=== PATIENT | male | born 1945 | race Caucasian/White ===

== ENCOUNTER 2018-07-05 21:13 | Emergency (ER) | payer OTHER ==
[~2018-07-05] VITALS: Ht 177.8 cm; Wt 90.7 kg
[~2018-07-05 21:13] MED LIST: ALEN70TA6 PO; ALLO300T2 PO; AMLO5TAB9 PO; ATEN100T PO; IBUP-1957 PO; LISI40TA4 PO; OXCA300T15 PO; QUET300T2 PO; VALP250S3 PO; ZIPR80CA2 PO; [UNRECOGNIZED DRUG - CODE] PO
--- NOTE | 2018-07-05 22:15 | NUR ---
BIBRA. C/O "NUMBNESS ALL OVER. WEAKNESS/NAUSEA" -SOB +N/-V. -NEURO DEFICIT. PT AAOX4, SPEAKING FLUENTLY, NO ARM/LEG DRIFTING, STRONG EQUAL LOOKBACK COORDINATOR, NO FACIAL DROOP. VSS. DENIES CP, SOB, DIZZINESS @ THIS TIME. DR. THAKKAR @ BS FOR EVAL & WILL CONT TO MONITOR.
[2018-07-05] MEDS ORDERED: IV NS 0.9% 500 ML BAG IV ONE (22:30)
[2018-07-05] MEDS ORDERED: ONDANSETRON HCL/PF 4 MG/2 ML VIAL IV ONE (22:30)
--- NOTE | 2018-07-05 22:30 | NUR ---
ADDENDUM: Intravenous End Time Documentation: Normal saline 500 cc (IV-WO): start time: 2230 PM ; end time: 2300 PM : IV site:[facility] PIV # 20 Port # 1
[2018-07-05 22:33] LABS: BASOPHILS % (AUTO) 0.4 % (0.0-2.0); EOSINOPHILS % (AUTO) 0.5 % (0.0-6.0); HEMATOCRIT 39 % (39-51); HEMOGLOBIN 13.1 g/dL (13.5-17.5); LYMPHOCYTES # (AUTO) 2.1 /CMM (0.8-4.8); LYMPHOCYTES % (AUTO) 26.6 % (20.0-44.0); MEAN CORPUSCULAR HGB CONC 33 g/dl (31.0-36.0); MEAN CORPUSCULAR VOLUME 82 fL (80-96); MONOCYTES # (AUTO) 0.7 /CMM (0.1-1.30); MONOCYTES % (AUTO) 8.9 % (2.0-12.0); NEUTROPHILS % (AUTO) 63.6 % (43.0-81.0); PLATELET COUNT (AUTO) 160 /CMM (150-450); RED BLOOD CELL COUNT(AUTO) 4.78 MIL/uL (4.5-6.0); WHITE BLOOD COUNT (AUTO) 7.9 K/uL (4.3-11.0)
[2018-07-05] MEDS ORDERED: ONDANSETRON HCL/PF 4 MG/2 ML VIAL ONE (22:39)
[2018-07-05 22:44] LABS: CARBON DIOXIDE 27 mmol/L (21-32); CHLORIDE 109 mmol/L (98-107); GLUCOSE 149 mg/dL (74-106); POTASSIUM 3.5 mmol/L (3.5-5.1); SODIUM SERUM 146 mmol/L (136-145); UREA NITROGEN, BLOOD 27 mg/dL (7-18)
--- NOTE | 2018-07-05 22:45 | NUR ---
MEDICATED FOR N/V, PT ELENA WELL.
[2018-07-05 22:49] LABS: ALANINE AMINOTRANSFERASE 24 U/L (12-78); ALBUMIN 3.4 g/dL (3.4-5.0); ALKALINE PHOSPHATASE 77 U/L (46-116); ASPARTATE AMINOTRANSFERASE 17 U/L (15-37); BILIRUBIN,DIRECT 0.1 mg/dL (0.0-0.2); BILIRUBIN,TOTAL 0.3 mg/dL (0.2-1.0); TOTAL PROTEIN, SERUM 6.8 g/dL (6.4-8.2)
[2018-07-05] MEDS ORDERED: IV NS 0.9% 1,000 ML BAG IV ONE (23:30)
--- NOTE | 2018-07-05 23:49 | NUR ---
SPOKE WITH SUELLEN FROM [facility], WILL CALL BACK FOR MD CONTACT
[2018-07-06] MEDS ORDERED: METOCLOPRAMIDE HCL 10 MG/2 ML VIAL IV ONE
[2018-07-06] MEDS ORDERED: METOCLOPRAMIDE HCL 10 MG/2 ML VIAL ONE (00:02)
--- NOTE | 2018-07-06 00:20 | NUR ---
PT TO BE TRANSFERRED TO [facility] ADMITTING MD: DR. PARKS NUMBER FOR REPORT: [facility] ETA [phone]
[2018-07-06 01:15] VITALS: BP 104/63
--- NOTE | 2018-07-06 01:15 | NUR ---
Report given to Fabian at [facility] for NADYA.
== END 2018-07-06 01:36 | disposition short-term general hospital (02) ==
LOC: ER 21:17
DX: E86.0 Dehydration (principal); R53.1 Weakness; R11.2 Nausea with vomiting, unspecified; I10 Essential (primary) hypertension; F31.9 Bipolar disorder, unspecified
CPT/HCPCS: 36415; 70450; 71045; 80048; 80076; 84484; 85025; 85730; 93005; 96361; 96374; 96375; 99285; J2405; J2765; J7030; J7040

== ENCOUNTER 2018-07-11 23:05 | Emergency (ER) | payer OTHER, MEDICAID ==
[~2018-07-11] VITALS: Ht 175.3 cm; Wt 93.0 kg
[2018-07-11 23:18] VITALS: BP 110/91
--- NOTE | 2018-07-11 23:24 | NUR ---
AFTER BEING TRIAGED, PT STATES "SINCE MY BLOOD PRESSURE IS NORMAL, I'LL JUST FOLLOW UP WITH MY PCP" RISK AND BENEFITS EXPLAINED X3. PT STRONGLY WANT TO GO HOME AND FOLLOW UP WITH PCP.
== END 2018-07-11 23:26 | disposition left against medical advice (07) ==
LOC: ER 23:06
DX: Z53.21 Procedure and treatment not carried out due to patient leaving prior to being seen by health care provider (principal); I10 Essential (primary) hypertension

== ENCOUNTER 2019-12-22 10:21 | Emergency (ER) | payer OTHER, MEDICAID ==
[~2019-12-22] VITALS: Ht 175.3 cm; Wt 90.7 kg
[2019-12-22] MEDS ORDERED: IV NS 0.9% 500 ML BAG IV ONE (11:00)
--- NOTE | 2019-12-22 11:07 | NUR ---
BROTHER: DEXTER WEBB [phone]
--- NOTE | 2019-12-22 11:14 | NUR ---
IV BOLUS GIVEN PER MD ORDER
--- NOTE | 2019-12-22 11:14 | NUR ---
PT IV STARTED RT AC 20G LABS DRAWN SENT TO LAB VSS
[2019-12-22 11:17] LABS: BASOPHILS % (AUTO) 0.4 % (0.0-2.0); EOSINOPHILS % (AUTO) 0.7 % (0.0-6.0); HEMATOCRIT 38 % (39-51); HEMOGLOBIN 12.2 g/dL (13.5-17.5); LYMPHOCYTES # (AUTO) 1.3 /CMM (0.8-4.8); LYMPHOCYTES % (AUTO) 17.9 % (20.0-44.0); MEAN CORPUSCULAR HGB CONC 32 g/dl (31.0-36.0); MEAN CORPUSCULAR VOLUME 81 fL (80-96); MONOCYTES # (AUTO) 0.8 /CMM (0.1-1.30); MONOCYTES % (AUTO) 11.5 % (2.0-12.0); NEUTROPHILS % (AUTO) 69.5 % (43.0-81.0); PLATELET COUNT (AUTO) 114 /CMM (150-450); RED BLOOD CELL COUNT(AUTO) 4.68 MIL/uL (4.5-6.0); WHITE BLOOD COUNT (AUTO) 7.2 K/uL (4.3-11.0)
[2019-12-22 11:37] LABS: CALCIUM, SERUM 8.8 mg/dL (8.5-10.1); CARBON DIOXIDE 29 mmol/L (21-32); CHLORIDE 105 mmol/L (98-107); CREATININE 1.8 mg/dL (0.6-1.3); GLUCOSE 109 mg/dL (74-106); POTASSIUM 3.8 mmol/L (3.5-5.1); SODIUM SERUM 142 mmol/L (136-145); UREA NITROGEN, BLOOD 35 mg/dL (7-18)
[2019-12-22 11:44] LABS: ALANINE AMINOTRANSFERASE 22 U/L (12-78); ALBUMIN 2.8 g/dL (3.4-5.0); ALKALINE PHOSPHATASE 47 U/L (46-116); ASPARTATE AMINOTRANSFERASE 22 U/L (15-37); BILIRUBIN,DIRECT 0.1 mg/dL (0.0-0.2); BILIRUBIN,TOTAL 0.3 mg/dL (0.2-1.0); TOTAL PROTEIN, SERUM 6.7 g/dL (6.4-8.2)
--- NOTE | 2019-12-22 12:12 | NUR ---
URINE SPECIMEN COLLECTED AND SENT TO LAB.
--- NOTE | 2019-12-22 12:17 | NUR ---
UA SENT TO LAB
[2019-12-22 12:38] LABS: APPEARANCE,URINE CLEAR (CLEAR); BILIRUBIN,URINE NEGATIVE (NEGATIVE); BLOOD, URINE MODERATE Ery/uL (NEGATIVE); COLOR,URINE YELLOW (YELLOW); KETONES,URINE NEGATIVE (NEGATIVE); LEUKOCYTE ESTERASE ,URINE NEGATIVE (NEGATIVE); NITRITE, URINE NEGATIVE (NEGATIVE); PROTEIN,URINE NEGATIVE (NEGATIVE); UGLUCOSE NEGATIVE (NEGATIVE); UROBILINOGEN,URINE 0.2 EU/dL (0.2)
--- NOTE | 2019-12-22 12:41 | NUR ---
CALLED [facility], AWAITING CALL FROM [facility] DR CUEVAS)
[2019-12-22 12:57] LABS: BACTERIA,URINE None seen /HPF (None Seen); RBC,URINE 21-50 /HPF (0-2); SQUAMOUS EPITHELIAL CELL,UR Few /HPF (None Seen); WBC,URINE NONE SEEN /HPF (0-3)
[2019-12-22 13:07] VITALS: BP 138/87
--- NOTE | 2019-12-22 13:20 | NUR ---
SPOKED TO ROBBIE JOHNSON AWNING HANGER SUPERVISOR. PT WILL GO TO [place] WILL CALL BACK FOR TRANSFER INFO.
--- NOTE | 2019-12-22 13:45 | NUR ---
TRANSFER INFO: [facility] ACCEPTING DR. NICKOLAS [facility] SOCIAL WORK CASE MANAGER TIME 1430 GO TO ER.. # FOR REPORT [phone]
--- NOTE | 2019-12-22 14:09 | NUR ---
REPORT GIVEN TO LAUREN TOBAR ER AT [facility]. PT STABLE FOR TRANSFER
== END 2019-12-22 14:14 | disposition short-term general hospital (02) ==
LOC: ER 10:25
DX: N17.9 Acute kidney failure, unspecified (principal); R53.1 Weakness; R29.6 Repeated falls; R42 Dizziness and giddiness; G40.909 Epilepsy, unspecified, not intractable, without status epilepticus; I10 Essential (primary) hypertension; Z60.2 Problems related to living alone; Z79.899 Other long term (current) drug therapy
CPT/HCPCS: 36415; 70450; 70486; 71045; 80048; 80076; 80164; 81001; 83880; 84484; 85025; 87086; 93005; 96360; 99285; J7030; 81000-TC

== ENCOUNTER 2020-01-23 06:06 | Emergency (ER) | payer OTHER ==
[~2020-01-23] VITALS: Ht 172.7 cm; Wt 90.7 kg
--- NOTE | 2020-01-23 06:28 | NUR ---
URINE COLLECTED AND SENT TO THE LAB.
--- NOTE | 2020-01-23 06:28 | NUR ---
PATIENT CAME TO ER BED 9 C/O "BLADDER INFECTION". PT STATES, "I HAVE BEEN PEEING FOR 15 TIMES SINCE YESTERDAY DAY, AND THEN I NOTICED SOME BLOOD". PATIENT IS COMPLAINING ABOUT LEFT KNEE PAIN FROM HIS ARTHRITIS. PATIENT IS AMBULATORY WITH A STEADY GAIT. PATIENT IS AAOX4. NO SOB. BREATHING EVENLY AND UNLABORED ON ROOM AIR. CONNECTED TO THE MONITOR.
--- NOTE | 2020-01-23 06:33 | NUR ---
NURSING CENTER TUTOR AT BEDSIDE FOR BLOOD DRAW
[2020-01-23 07:00] LABS: BASOPHILS % (AUTO) 0.3 % (0.0-2.0); EOSINOPHILS % (AUTO) 1.2 % (0.0-6.0); HEMATOCRIT 33 % (39-51); HEMOGLOBIN 10.7 g/dL (13.5-17.5); LYMPHOCYTES # (AUTO) 1.3 /CMM (0.8-4.8); MEAN CORPUSCULAR HGB CONC 32 g/dl (31.0-36.0); MEAN CORPUSCULAR VOLUME 79 fL (80-96); MONOCYTES # (AUTO) 0.9 /CMM (0.1-1.30); MONOCYTES % (AUTO) 13.7 % (2.0-12.0); NEUTROPHILS # (AUTO) 4.1 /CMM (1.8-8.9); NEUTROPHILS % (AUTO) 64.8 % (43.0-81.0); PLATELET COUNT (AUTO) 161 /CMM (150-450); WHITE BLOOD COUNT (AUTO) 6.3 K/uL (4.3-11.0)
[2020-01-23 07:06] LABS: APPEARANCE,URINE SL CLOUDY (CLEAR); BILIRUBIN,URINE NEGATIVE (NEGATIVE); BLOOD, URINE LARGE Ery/uL (NEGATIVE); COLOR,URINE AMBER (YELLOW); KETONES,URINE NEGATIVE (NEGATIVE); LEUKOCYTE ESTERASE ,URINE NEGATIVE (NEGATIVE); NITRITE, URINE NEGATIVE (NEGATIVE); PROTEIN,URINE >=300 mg/dl (NEGATIVE); UGLUCOSE NEGATIVE (NEGATIVE)
[2020-01-23 07:15] LABS: ALANINE AMINOTRANSFERASE 19 U/L (12-78); ALBUMIN 2.7 g/dL (3.4-5.0); ALKALINE PHOSPHATASE 55 U/L (46-116); ASPARTATE AMINOTRANSFERASE 15 U/L (15-37); BILIRUBIN,DIRECT 0.1 mg/dL (0.0-0.2); BILIRUBIN,TOTAL 0.2 mg/dL (0.2-1.0); CALCIUM, SERUM 9.3 mg/dL (8.5-10.1); CARBON DIOXIDE 22 mmol/L (21-32); CHLORIDE 104 mmol/L (98-107); CREATININE 1.5 mg/dL (0.6-1.3); GLUCOSE 120 mg/dL (74-106); LIPASE 218 U/L (73-393); POTASSIUM 3.6 mmol/L (3.5-5.1); SODIUM SERUM 139 mmol/L (136-145); UREA NITROGEN, BLOOD 25 mg/dL (7-18)
--- NOTE | 2020-01-23 07:18 | NUR ---
REPORT GIVEN TO RONEY TOBAR FOR NADYA.
[2020-01-23 07:22] LABS: RBC,URINE TOO NUMEROUS TO COUN /HPF (0-2)
[2020-01-23 07:23] LABS: BACTERIA,URINE None seen /HPF (None Seen); SQUAMOUS EPITHELIAL CELL,UR Few /HPF (None Seen)
[2020-01-23 07:46] VITALS: BP 129/70
--- NOTE | 2020-01-23 07:46 | NUR ---
Patient discharged to home in stable condition. Written and verbal after care instructions given. Patient verbalizes understanding of instruction.
== END 2020-01-23 07:46 | disposition home or self-care (01) ==
LOC: ER 06:09
DX: N30.01 Acute cystitis with hematuria (principal); D64.9 Anemia, unspecified; I10 Essential (primary) hypertension; F31.9 Bipolar disorder, unspecified; Z60.2 Problems related to living alone; Z79.899 Other long term (current) drug therapy
CPT/HCPCS: 36415; 80048-TC; 80076-TC; 81000-TC; 83605-TC; 83690-TC; 85025-TC; 85730-TC; 87040-TC; 87086-TC; 87186-TC

== ENCOUNTER 2020-01-26 06:46 | Emergency (ER) | payer OTHER, MEDICAID ==
[~2020-01-26] VITALS: Ht 172.7 cm; Wt 90.7 kg
--- NOTE | 2020-01-26 06:58 | NUR ---
PT CAME TO THE ER C/O WORSENING HEMATURIA, DYSURIA, AND URINARY FREQUENCY X 4 DAYS. PT IS ON KEFLEX. PT AAOX4, VSS, RESPIRATIONS EVEN AND UNLABORED ON RA W/ NAD NOTED. PT CONNECTED TO THE MONITOR AND POX
--- NOTE | 2020-01-26 07:04 | NUR ---
URINE COLLECTED AND SENT TO LAB
--- NOTE | 2020-01-26 07:22 | NUR ---
BLOOD COLLECTED AND SENT TO LAB
[2020-01-26] MEDS ORDERED: IV NS 0.9% 1,000 ML BAG IV ONE (07:30)
[2020-01-26 07:41] LABS: CALCIUM, SERUM 9.1 mg/dL (8.5-10.1); CARBON DIOXIDE 25 mmol/L (21-32); CHLORIDE 102 mmol/L (98-107); CREATININE 1.5 mg/dL (0.6-1.3); GLUCOSE 118 mg/dL (74-106); POTASSIUM 3.3 mmol/L (3.5-5.1); SODIUM SERUM 139 mmol/L (136-145); UREA NITROGEN, BLOOD 20 mg/dL (7-18)
[2020-01-26 07:46] LABS: ALANINE AMINOTRANSFERASE 17 U/L (12-78); ALBUMIN 2.7 g/dL (3.4-5.0); ALKALINE PHOSPHATASE 52 U/L (46-116); ASPARTATE AMINOTRANSFERASE 13 U/L (15-37); BILIRUBIN,DIRECT 0.1 mg/dL (0.0-0.2); BILIRUBIN,TOTAL 0.2 mg/dL (0.2-1.0); TOTAL PROTEIN, SERUM 6.9 g/dL (6.4-8.2)
[2020-01-26 07:54] LABS: APPEARANCE,URINE CLOUDY (CLEAR); BILIRUBIN,URINE SMALL (NEGATIVE); BLOOD, URINE LARGE Ery/uL (NEGATIVE); COLOR,URINE DARK YELLO (YELLOW); KETONES,URINE TRACE (NEGATIVE); LEUKOCYTE ESTERASE ,URINE NEGATIVE (NEGATIVE); NITRITE, URINE NEGATIVE (NEGATIVE); PROTEIN,URINE >=300 mg/dl (NEGATIVE); UGLUCOSE NEGATIVE (NEGATIVE)
[2020-01-26] MEDS ORDERED: VANCOMYCIN 1 GM in IV D5W 250 ML IV ONE (08:00)
[2020-01-26 08:09] LABS: BASOPHILS % (AUTO) 0.5 % (0.0-2.0); EOSINOPHILS % (AUTO) 2.8 % (0.0-6.0); HEMATOCRIT 34 % (39-51); HEMOGLOBIN 10.9 g/dL (13.5-17.5); LYMPHOCYTES # (AUTO) 1.4 /CMM (0.8-4.8); LYMPHOCYTES % (AUTO) 21.1 % (20.0-44.0); MEAN CORPUSCULAR HGB CONC 32 g/dl (31.0-36.0); MEAN CORPUSCULAR VOLUME 79 fL (80-96); MONOCYTES # (AUTO) 0.9 /CMM (0.1-1.30); MONOCYTES % (AUTO) 14.3 % (2.0-12.0); NEUTROPHILS % (AUTO) 61.3 % (43.0-81.0); PLATELET COUNT (AUTO) 186 /CMM (150-450); RED BLOOD CELL COUNT(AUTO) 4.32 MIL/uL (4.5-6.0); WHITE BLOOD COUNT (AUTO) 6.6 K/uL (4.3-11.0)
[2020-01-26] MEDS ORDERED: VANCOMYCIN 1 GM VIAL ONE (08:19)
[2020-01-26 08:35] LABS: BACTERIA,URINE Rare /HPF (None Seen); RBC,URINE TOO NUMEROUS TO COUN /HPF (0-2); SQUAMOUS EPITHELIAL CELL,UR Few /HPF (None Seen); WBC,URINE 0-2 /HPF (0-3)
--- NOTE | 2020-01-26 09:35 | NUR ---
IV removed. Catheter intact and site benign. Pressure and 4x4 applied to site. No bleeding noted.Patient discharged to home in stable condition. Written and verbal after care instructions given. Patient verbalizes understanding of instruction.
[2020-01-26 09:36] VITALS: BP 117/69
== END 2020-01-26 09:36 | disposition home or self-care (01) ==
LOC: ER 06:53
DX: N30.00 Acute cystitis without hematuria (principal); R94.4 Abnormal results of kidney function studies; I10 Essential (primary) hypertension; F31.9 Bipolar disorder, unspecified; Z60.2 Problems related to living alone; Z79.899 Other long term (current) drug therapy
CPT/HCPCS: 36415; 74176; 80048; 80076; 81001; 83605; 84484; 85025; 85610; 85730; 87086; 96361; 96365; 99284; J3370; 81000-TC

== ENCOUNTER 2020-09-02 05:13 | Emergency (ER) | payer OTHER ==
[~2020-09-02] VITALS: Ht 172.7 cm; Wt 90.7 kg
[~2020-09-02 05:13] MED LIST changes: -ALEN70TA6 PO; +ALEN70TA80 PO; +AMLO-212 PO; -AMLO5TAB9 PO; +LISI40TA13 PO; -LISI40TA4 PO
--- NOTE | 2020-09-02 05:28 | NUR ---
BIBS FOR C/O GENERALIZED ABD PAIN X 2 DAYS. -N/V/D, - DYSURIA OR HEMATURIA. PT WAS ASSISTED TO BED 4 ER WAS PLACED ON A MONITOR . VSS.
[2020-09-02] MEDS ORDERED: MORPHINE SULFATE INJ 2 MG/ML DISP.SYRIN IV ONE ×2 (06:00→10:00)
[2020-09-02] MEDS ORDERED: ONDANSETRON HCL/PF 4 MG/2 ML VIAL IVP ONE (06:00)
[2020-09-02] MEDS ORDERED: IV NS 0.9% 500 ML BAG IV ONE (06:00)
[2020-09-02] MEDS ORDERED: ONDANSETRON HCL/PF 4 MG/2 ML VIAL ONE (06:18)
[2020-09-02 06:19] LABS: BASOPHILS # (AUTO) 0.1 /CMM (0.0-0.2); BASOPHILS % (AUTO) 0.9 % (0.0-2.0); HEMATOCRIT 36 % (39-51); HEMOGLOBIN 11.3 g/dL (13.5-17.5); LYMPHOCYTES # (AUTO) 0.9 /CMM (0.8-4.8); LYMPHOCYTES % (AUTO) 9.7 % (20.0-44.0); MEAN CORPUSCULAR HGB CONC 32 g/dl (31.0-36.0); MEAN CORPUSCULAR VOLUME 77 fL (80-96); MONOCYTES # (AUTO) 0.8 /CMM (0.1-1.30); MONOCYTES % (AUTO) 8.3 % (2.0-12.0); NEUTROPHILS # (AUTO) 7.4 /CMM (1.8-8.9); NEUTROPHILS % (AUTO) 80.1 % (43.0-81.0); PLATELET COUNT (AUTO) 175 /CMM (150-450); RED BLOOD CELL COUNT(AUTO) 4.62 MIL/uL (4.5-6.0); WHITE BLOOD COUNT (AUTO) 9.2 K/uL (4.3-11.0)
--- NOTE | 2020-09-02 06:22 | NUR ---
PATIENT TO CT VIA [facility]
[2020-09-02 06:27] LABS: CARBON DIOXIDE 28 mmol/L (21-32); CHLORIDE 106 mmol/L (98-107); GLUCOSE 168 mg/dL (74-106); POTASSIUM 3.7 mmol/L (3.5-5.1); SODIUM SERUM 140 mmol/L (136-145); UREA NITROGEN, BLOOD 32 mg/dL (7-18)
[2020-09-02 06:35] LABS: ALANINE AMINOTRANSFERASE 10 U/L (12-78); ALBUMIN 3.1 g/dL (3.4-5.0); ALKALINE PHOSPHATASE 55 U/L (46-116); ASPARTATE AMINOTRANSFERASE 10 U/L (15-37); BILIRUBIN,DIRECT 0.1 mg/dL (0.0-0.2); BILIRUBIN,TOTAL 0.3 mg/dL (0.2-1.0); TOTAL PROTEIN, SERUM 7.1 g/dL (6.4-8.2)
--- NOTE | 2020-09-02 06:38 | NUR ---
RETURNED FROM CT
[2020-09-02 06:58] LABS: LIPASE 5403 U/L (73-393)
--- NOTE | 2020-09-02 07:25 | NUR ---
REQUESTED A URINE SAMPLE FROM PATIENT. PATIENT PROVIDED A URINAL.
--- NOTE | 2020-09-02 07:51 | NUR ---
URINE SENT TO LAB.
--- NOTE | 2020-09-02 07:53 | NUR ---
[facility] NOTIFIED. WAITING FOR CALL BACK.
--- NOTE | 2020-09-02 08:10 | NUR ---
COVID SWAB SENT
[2020-09-02 08:19] LABS: BILIRUBIN,URINE Negative (NEGATIVE); COLOR,URINE YELLOW (YELLOW); LEUKOCYTE ESTERASE ,URINE Negative (NEGATIVE); NITRITE, URINE Negative (NEGATIVE); PROTEIN,URINE Negative (NEGATIVE); UGLUCOSE Negative (NEGATIVE); UROBILINOGEN,URINE 0.2 EU/dL (0.2)
[2020-09-02 08:27] LABS: RBC,URINE 0-2 /HPF (0-2)
[2020-09-02 08:28] LABS: BACTERIA,URINE Few /HPF (None Seen); SQUAMOUS EPITHELIAL CELL,UR Rare /HPF (None Seen)
--- NOTE | 2020-09-02 08:50 | NUR ---
covid negative per lab
--- NOTE | 2020-09-02 08:55 | NUR ---
Patient Tranfers to outside Facility Physician:Dr. Hurley Location:[facility] ETA 9:45am [facility]
--- NOTE | 2020-09-02 09:16 | NUR ---
PHONE # FOR REPORT TO MAGALLON
--- NOTE | 2020-09-02 09:17 | NUR ---
SPOKE TO SORIN NO NEED TO GIVE REPORT, REPORT RECEIVED FROM A DOCTOR.
[2020-09-02] MEDS ORDERED: MORPHINE SULFATE INJ 4 MG/ML DISP.SYRIN ONE (09:32)
--- NOTE | 2020-09-02 09:39 | NUR ---
PATIENT AWARE HE'S GOING TO [place] [facility]. KEPT NPO AT THIS TIME. PAIN MEDICATION GIVEN.
--- NOTE | 2020-09-02 09:52 | NUR ---
patient placed on 2lpm via nc for comfort.
[2020-09-02 09:53] VITALS: BP 128/81
--- NOTE | 2020-09-02 10:01 | NUR ---
REPORT AND PAPERWORK GIVEN TO COOK SHORT ORDER. PATIENT A/OX4, IN STABLE CONDITION. O2 IN PLACED. DENIES PAIN AT THIS TIME. PATEINT TRANSFERRED TO [facility].
== END 2020-09-02 10:06 | disposition short-term general hospital (02) ==
LOC: ER 05:16
DX: K85.90 Acute pancreatitis without necrosis or infection, unspecified (principal); R91.8 Other nonspecific abnormal finding of lung field; Z20.822 Contact with and (suspected) exposure to COVID-19; I71.4 Abdominal aortic aneurysm, without rupture; Z90.49 Acquired absence of other specified parts of digestive tract; D64.9 Anemia, unspecified; N28.9 Disorder of kidney and ureter, unspecified; I11.9 Hypertensive heart disease without heart failure; Z79.899 Other long term (current) drug therapy; K59.00 Constipation, unspecified; R26.9 Unspecified abnormalities of gait and mobility
CPT/HCPCS: 36415; 70450; 71045; 74176; 80048; 80076; 81001; 83690; 84484; 85025; 85730; 87086; 87426; 93005; 96374; 96375; 99285; C9803; J2270; J2405; J7030

== ENCOUNTER 2020-09-15 04:48 | Emergency (ER) | payer OTHER ==
[~2020-09-15] VITALS: Ht 172.7 cm; Wt 86.2 kg
--- NOTE | 2020-09-15 04:59 | NUR ---
PRESENTED TO THE ER FOR C/O GNERALIZED WEAKNESS ABOUT 50MIN. PT REPORTED HE'S FEELING VERY WEAK TO WALK. DENIED ANY PAIN OR DISCOMFORT . DENIED H/A OR DIZZINESS. NO NEURO DEFICIT INCLUDING FACIAL DROOP OR SLURRED SPEECH NOTED .PT WAS ASSISTED TO BED 3 ER, WAS PLACED ON A MONITOR . VSS . WILL CONT TO MONITOR,
--- NOTE | 2020-09-15 05:10 | NUR ---
rt hand 20g initiated. blood obtained and sent to lab
--- NOTE | 2020-09-15 05:18 | NUR ---
xray at bedside
[2020-09-15 05:27] LABS: BASOPHILS % (AUTO) 0.5 % (0.0-2.0); EOSINOPHILS % (AUTO) 2.7 % (0.0-6.0); HEMATOCRIT 32 % (39-51); HEMOGLOBIN 10.1 g/dL (13.5-17.5); LYMPHOCYTES # (AUTO) 1.7 /CMM (0.8-4.8); LYMPHOCYTES % (AUTO) 26.3 % (20.0-44.0); MEAN CORPUSCULAR HGB CONC 32 g/dl (31.0-36.0); MEAN CORPUSCULAR VOLUME 77 fL (80-96); MONOCYTES # (AUTO) 0.4 /CMM (0.1-1.30); MONOCYTES % (AUTO) 6.9 % (2.0-12.0); NEUTROPHILS # (AUTO) 4.1 /CMM (1.8-8.9); NEUTROPHILS % (AUTO) 63.6 % (43.0-81.0); PLATELET COUNT (AUTO) 275 /CMM (150-450); RED BLOOD CELL COUNT(AUTO) 4.16 MIL/uL (4.5-6.0); WHITE BLOOD COUNT (AUTO) 6.4 K/uL (4.3-11.0)
--- NOTE | 2020-09-15 06:02 | NUR ---
PT UNABLE TO PROVIDE URINE SAMPLE AT THIS TIME, AWARE
[2020-09-15 06:06] LABS: CALCIUM, SERUM 8.6 mg/dL (8.5-10.1); CARBON DIOXIDE 23 mmol/L (21-32); CHLORIDE 111 mmol/L (98-107); CREATININE 1.7 mg/dL (0.6-1.3); GLUCOSE 114 mg/dL (74-106); POTASSIUM 3.9 mmol/L (3.5-5.1); SODIUM SERUM 145 mmol/L (136-145); UREA NITROGEN, BLOOD 32 mg/dL (7-18)
--- NOTE | 2020-09-15 06:36 | NUR ---
DR CONNOR AT BED SIDE
--- NOTE | 2020-09-15 06:44 | NUR ---
pt able to stand and walk alone without assistance
--- NOTE | 2020-09-15 06:55 | NUR ---
Patient discharged to home in stable condition. Written and verbal after care instructions given. Patient verbalizes understanding of instruction. IV removed. Catheter intact and site benign. Pressure and 4x4 applied to site. No bleeding noted. Pt ambulatory with a steady gait
--- NOTE | 2020-09-15 06:55 | NUR ---
Alexys condon in ED - 09/15/20 at 0706 by CRYSTAL Patient discharged to home in stable condition. Written and verbal after care instructions given. Patient verbalizes understanding of instruction. Pt ambulatory with a steady gait
--- NOTE | 2020-09-15 06:56 | NUR ---
CALLED [facility] FOR TRANSPORTATION
--- NOTE | 2020-09-15 07:16 | NUR ---
Janee from [facility] called for ambulance ETA 830am.
[2020-09-15 07:47] LABS: BILIRUBIN,URINE Negative (NEGATIVE); COLOR,URINE YELLOW (YELLOW); LEUKOCYTE ESTERASE ,URINE Negative (NEGATIVE); NITRITE, URINE Negative (NEGATIVE); PH,URINE 5.5 (5.0-8.0); PROTEIN,URINE Negative (NEGATIVE); UGLUCOSE Negative (NEGATIVE); UROBILINOGEN,URINE 0.2 EU/dL (0.2)
[2020-09-15 08:10] VITALS: BP 141/84
--- NOTE | 2020-09-15 08:11 | NUR ---
Patient discharged to home in stable condition. Written and verbal after care instructions given. Patient verbalizes understanding of instruction.IV removed. Catheter intact and site benign. Pressure and 4x4 applied to site. No bleeding noted.
== END 2020-09-15 08:11 | disposition home or self-care (01) ==
LOC: ER 04:50
DX: R53.1 Weakness (principal); Z20.822 Contact with and (suspected) exposure to COVID-19; I10 Essential (primary) hypertension; F31.9 Bipolar disorder, unspecified; Z79.899 Other long term (current) drug therapy
CPT/HCPCS: 36415; 71045; 80048; 81003; 84484; 85025; 87426; 93005; 99285; C9803

== ENCOUNTER 2021-02-02 14:41 | Emergency (ER) | payer OTHER ==
[~2021-02-02] VITALS: Ht 172.7 cm; Wt 90.7 kg
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
[2021-02-02] MEDS ORDERED: LIDOCAINE HCL/PF 1% 30 ML VIAL IM ONE (15:30)
[2021-02-02] MEDS ORDERED: LIDOCAINE 1% INJ 50 ML MDV IJ ONE (15:38)
[2021-02-02] MEDS ORDERED: CEPH500C2 PO (16:31)
[2021-02-02 16:48] VITALS: BP 132/74
--- NOTE | 2021-02-02 16:55 | NUR ---
Patient discharged to home in stable condition. Written and verbal after care instructions given. Patient verbalizes understanding of instruction.
== END 2021-02-02 16:48 | disposition home or self-care (01) ==
LOC: ER 14:48
DX: S01.311A Laceration without foreign body of right ear, initial encounter (principal); I10 Essential (primary) hypertension; F31.9 Bipolar disorder, unspecified; Z60.2 Problems related to living alone; Z79.899 Other long term (current) drug therapy; W26.8XXA Contact with other sharp object(s), not elsewhere classified, initial encounter; Y93.89 Activity, other specified; Y92.89 Other specified places as the place of occurrence of the external cause; Y99.8 Other external cause status
CPT/HCPCS: 12011; 99283; A6403; J3490

== ENCOUNTER 2021-03-01 15:10 | Emergency (ER) | payer OTHER ==
[~2021-03-01] VITALS: Ht 172.7 cm; Wt 90.7 kg
[~2021-03-01 15:10] MED LIST changes: +CEPH500C2 PO
[2021-03-01 15:22] VITALS: BP 177/117
--- NOTE | 2021-03-01 16:50 | NUR ---
Patient discharged to home in stable condition. Written and verbal after care instructions given. Patient verbalizes understanding of instruction.
== END 2021-03-01 16:51 | disposition home or self-care (01) ==
LOC: ER 15:23
DX: S01.311D Laceration without foreign body of right ear, subsequent encounter (principal); H61.21 Impacted cerumen, right ear; I10 Essential (primary) hypertension; Z60.2 Problems related to living alone; Z79.899 Other long term (current) drug therapy; X58.XXXD Exposure to other specified factors, subsequent encounter

== ENCOUNTER 2021-04-06 15:02 | Emergency (ER) | payer OTHER ==
[~2021-04-06] VITALS: Ht 172.7 cm; Wt 90.7 kg
[2021-04-06 15:10] VITALS: BP 143/85
--- NOTE | 2021-04-06 15:15 | NUR ---
BIB RA 87 FROM HOME,C/O EARACHE AND TOOTHACHE. RATES PAINS 8/10. WILL CONTINUE TO MONITOR THE PATIENT.
--- NOTE | 2021-04-06 16:30 | NUR ---
SPOKE TO PT'S BROTHER DEXTER [phone]
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
[2021-04-06] MEDS ORDERED: AMOX500C2 PO (16:58)
[2021-04-06] MEDS ORDERED: TRAM50TA2 PO (16:58)
--- NOTE | 2021-04-06 17:05 | NUR ---
Patient discharged to home in stable condition. Written and verbal after care instructions given. Patient verbalizes understanding of instruction.
== END 2021-04-06 17:06 | disposition home or self-care (01) ==
LOC: ER 15:08
DX: K08.89 Other specified disorders of teeth and supporting structures (principal); I10 Essential (primary) hypertension; Z60.2 Problems related to living alone; Z79.899 Other long term (current) drug therapy

== ENCOUNTER 2021-05-29 16:39 | Emergency (ER) | payer OTHER ==
[~2021-05-29] VITALS: Ht 175.3 cm; Wt 89.8 kg
[~2021-05-29 16:39] MED LIST changes: +AMOX500C2 PO; +TRAM50TA2 PO
[2021-05-29 16:42] VITALS: BP 160/89
--- NOTE | 2021-05-29 16:42 | NUR ---
BIB RA 87 FROM HOME,HEADACHE X 3MONTHS,FEET HURTING WHEN WALKING AROUND HIS BLOCK
--- NOTE | 2021-05-29 16:51 | NUR ---
PT TAKEN TO CT
--- NOTE | 2021-05-29 16:55 | NUR ---
SPOKE TO PT BROTHER DEXTER [phone]
[2021-05-29] MEDS ORDERED: SUMATRIPTAN SUCCINATE 6 MG/0.5 ML VIAL SQ ONE ×2 (16:57→17:00)
[2021-05-29] MEDS ORDERED: OXYMETAZOLINE HCL NASAL SPRAY 30 ML BOTTLE NS ONE ×2 (16:57→17:00)
[2021-05-29] MEDS ORDERED: METOCLOPRAMIDE HCL 10 MG/2 ML VIAL ONE (16:57)
[2021-05-29] MEDS ORDERED: KETOROLAC TROMETHAMINE 15 MG/ML VIAL ONE (16:57)
[2021-05-29] MEDS ORDERED: IV NS 0.9% 1,000 ML BAG IV ONE (17:00)
[2021-05-29] MEDS ORDERED: KETOROLAC TROMETHAMINE INJ 30 MG/ML VIAL IV ONE (17:00)
[2021-05-29] MEDS ORDERED: METOCLOPRAMIDE HCL 10 MG/2 ML VIAL IV ONE (17:00)
[2021-05-29] MEDS ORDERED: PSEU120T83 PO (17:40)
[2021-05-29] MEDS ORDERED: SUMA100T PO (17:40)
[2021-05-29] MEDS ORDERED: CYCL5TAB PO (17:44)
[2021-05-29] MEDS ORDERED: GABA400C PO (18:16)
--- NOTE | 2021-05-29 18:30 | NUR ---
Patient discharged to home in stable condition. Written and verbal after care instructions given. Patient verbalizes understanding of instruction.
--- NOTE | 2021-06-08 10:48 | NUR ---
KAY. 1000ML NORMAL SALINE STARTED AT 1731 ON 05/29/21 ON R HAND 20G; NORMAL SALINE FINISHED AT 1824. PT TOLERATED NORMAL SALINE WELL.
== END 2021-05-29 18:33 | disposition home or self-care (01) ==
LOC: ER 16:42
DX: G31.9 Degenerative disease of nervous system, unspecified (principal); I10 Essential (primary) hypertension; F31.9 Bipolar disorder, unspecified; Z87.19 Personal history of other diseases of the digestive system; Z60.2 Problems related to living alone; Z79.1 Long term (current) use of non-steroidal anti-inflammatories (NSAID); Z79.891 Long term (current) use of opiate analgesic; Z79.899 Other long term (current) drug therapy
CPT/HCPCS: 70450; 72125; 96361; 96372; 96374; 96375; 99284; J1885; J2765; J3030

== ENCOUNTER 2021-08-03 02:14 | Emergency (ER) | payer OTHER ==
[~2021-08-03] VITALS: Ht 175.3 cm; Wt 99.8 kg
[~2021-08-03 02:14] MED LIST changes: +CYCL5TAB PO; +GABA400C PO; +PSEU120T83 PO; +SUMA100T PO
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
[2021-08-03] MEDS ORDERED: CLIN300C12 PO (03:46)
--- NOTE | 2021-08-03 04:00 | NUR ---
Patient discharged to home in stable condition. Written and verbal after care instructions given. Patient verbalizes understanding of instruction. PT ambulatory with a steady gait
[2021-08-03 04:02] VITALS: BP 163/83
== END 2021-08-03 04:06 | disposition home or self-care (01) ==
LOC: ER 02:17
DX: S91.202D Unspecified open wound of left great toe with damage to nail, subsequent encounter (principal); I10 Essential (primary) hypertension; F31.9 Bipolar disorder, unspecified; Z87.19 Personal history of other diseases of the digestive system; Z60.2 Problems related to living alone; Z79.899 Other long term (current) drug therapy; X58.XXXD Exposure to other specified factors, subsequent encounter

== ENCOUNTER 2021-10-01 23:10 | Emergency (ER) | payer OTHER ==
[~2021-10-01] VITALS: Ht 175.3 cm; Wt 109.3 kg
[~2021-10-01 23:10] MED LIST changes: +CLIN300C12 PO
[2021-10-01 23:32] VITALS: BP 188/108
--- NOTE | 2021-10-01 23:34 | NUR ---
UPON TRIAGE, PT VERBALLY AGGRESSIVE STATED "I DON'T WANT YOU TO CHECK MY VITALS PRATIK" PT REFUSED TO PLACE A MASK ON.
--- NOTE | 2021-10-01 23:45 | NUR ---
PATIENT REFUSING ALL CARE, PATIENT LEAVING AGAINST MEDICAL ADVICE.
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
--- NOTE | 2021-10-01 23:50 | NUR ---
PATIENT BEING DIFFICULT TO DISCHARGE, PROVIDED WITH SHIRT. APPROACHED DOCTOR AND TRIED TO PUT HIS HANDS ON HER. PATIENT BEING COMBATIVE AND THREATENING STAFF. SECURITY WAS CALLED. PATIENT WAS ESCOURTED OUT TO HIS RIDE.
--- NOTE | 2021-10-01 23:50 | NUR ---
Alexys condon in [facility] - 10/02/21 at 0010 by SHOBHA Patient discharged to home in stable condition. Written and verbal after care instructions given. Patient verbalizes understanding of instruction.
== END 2021-10-02 00:17 | disposition left against medical advice (07) ==
LOC: ER 23:15
DX: M79.89 Other specified soft tissue disorders (principal); I10 Essential (primary) hypertension; Z60.2 Problems related to living alone; Z79.899 Other long term (current) drug therapy